=== PATIENT | male | born 1975 | race Two or more races ===

== ENCOUNTER 2024-05-19 10:23 | Emergency (ER) | payer MEDICAID, OTHER ==
[~2024-05-19] VITALS: Ht 188 cm; Wt 162.8 kg
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
[2024-05-19] MEDS: traMADol HCL 50 MG TAB PO ONE (11:29)
--- NOTE | 2024-05-19 11:47 | DVH ---
CLINICAL INDICATION: trauma TECHNIQUE: 4 radiographic views of the left tibia/fibula were obtained. Comparison: None FINDINGS/IMPRESSION: There is no evidence of acute fracture or dislocation. The visualized joint space is well maintained. The alignment is anatomical. There is no radiopaque foreign body.
[2024-05-19 12:27] VITALS: BP 138/84; PULSE 77; RESP 16; TEMP 97.7; O2SAT 95
== END 2024-05-19 12:28 | disposition home or self-care (01) ==
LOC: ER 10:23
DX: S80.12XA Contusion of left lower leg, initial encounter (principal); I10 Essential (primary) hypertension; V89.2XXA Person injured in unspecified motor-vehicle accident, traffic, initial encounter; Y93.89 Activity, other specified; Y92.410 Unspecified street and highway as the place of occurrence of the external cause; Y99.8 Other external cause status
CPT/HCPCS: 73590